=== PATIENT | male | born 1955 | race Caucasian/White ===

== ENCOUNTER 2020-07-03 10:38 | Inpatient (IN) | payer MEDICAID ==
[~2020-07-03] VITALS: Ht 198.1 cm; Wt 77.6 kg
[2020-07-03] MEDS ORDERED: Pantoprazole Inj IV ONE (11:00)
--- NOTE | 2020-07-03 11:04 | Emergency Room Report ---
History of Present Illness General Chief Complaint: Vomiting Source: Medical Record, EMS Present Illness HPI Patient is DNR. Patient currently resides at a shelter. Patient's primary care physician is Dr. Dexter. Patient apparently has a history of GI bleeds. Patient also was recently diagnosed with COVID and has made a full recovery. Patient presents emergency department today with episodes of coffee-ground emesis x2. Patient is a poor historian unable to provide a history. All the history was obtained from medical records and discussion with EMS. Symptoms noted to be moderate to severe. No other modifying factors. No other associated signs and symptoms. No other complaints were noted. Allergies: Coded Allergies: No Known Allergies (Unverified , 07/03/20) COVID-19 Screening Contact w/high risk pt: Yes Experienced COVID-19 symptoms?: No COVID-19 Testing performed SURGICAL CONSULTANT: Yes COVID-19 Screening: Negative COVID-19 COVID-19 Testing Source: Negative on last , Positive April 16 Patient History Reviewed Nursing Documentation: PMH: Agreed; PSxH: Agreed Nursing Documentation-PMH Past Medical History: No History, Except For Hx COPD: Yes - PNA, COVID + History Of Psychiatric Problem: Yes - anxiety, paranoid schizophrenia Review of Systems All Other Systems: negative except mentioned in HPI Physical Exam Vital Signs Date Time Temp Pulse Resp B/P (MAP) Pulse Ox O2 Delivery O2 Flow Rate FiO2 07/03/20 10:32 97.5 91 24 118/70 (86) 94 Room Air Sp02 EP Interpretation: reviewed, normal General Appearance: alert, thin, Chronically Ill Head: atraumatic Eyes: bilateral eye normal inspection ENT: normal ENT inspection, hearing grossly normal, normal voice Neck: normal inspection, full range of motion, supple, no bony tend Respiratory: normal inspection, lungs clear, normal breath sounds, no respiratory distress, no retraction, no wheezing Cardiovascular #1: regular rate, rhythm, no edema Gastrointestinal: normal inspection, normal bowel sounds, non tender, soft, no guarding, no hernia Genitourinary: no CVA tenderness Musculoskeletal: normal inspection, back normal, normal range of motion Neurologic: alert, responsive, speech normal, normal inspection Psychiatric: depressed affect, anxious Skin: no rash Medical Decision Making Diagnostic Impression: Primary Impression: Upper GI bleed Additional Impression: Vomiting ER Course Patient presents emergency department today with episodes of coffee-ground emesis. Differential considerations include upper GI bleeding, bowel obstruction, electrolyte abnormality, gastroenteritis just name a few. Given the severity of the patient's presentation I felt this is a highly complex patient. This patient required extensive workup. Patient laboratory work-up was not impressive. However given history patient's advanced age and appearance feel the patient require admission for further treatment and evaluation. Also obtain a CT scan. Case was discussed in detail with Dr. Bárbara Chavez who knows patient well from shelter. He recommends he be admitted for his service for further evaluation. Case was also discussed with Dr. Self from GI for further evaluation as needed. Patient will be placed on [facility] for further treatment. Labs Test 07/03/20 10:45 07/03/20 10:51 Urine Color Brown Urine Appearance Cloudy Urine pH 8 (4.5-8.0) Urine Specific [place] 1.010 (1.005-1.035) Urine Protein 3+ (NEGATIVE) Urine Glucose (UA) Negative (NEGATIVE) Urine Ketones Negative (NEGATIVE) Urine Blood 5+ (NEGATIVE) Urine Nitrite Positive (NEGATIVE) Urine Bilirubin Negative (NEGATIVE) Urine Urobilinogen 4 MG/DL (0.0-1.0) Urine Leukocyte Esterase 3+ (NEGATIVE) Urine RBC Tntc /HPF (0 - 0) Urine WBC 15-20 /HPF (0 - 0) Urine Squamous Epithelial Cells Occasional /LPF Urine Bacteria Many /HPF (NONE) White Blood Count 6.0 K/UL (4.8-10.8) Red Blood Count 4.95 M/UL (4.70-6.10) Hemoglobin 14.9 G/DL (14.2-18.0) Hematocrit 42.7 % (42.0-52.0) Mean Corpuscular Volume 86 FL (80-99) Mean Corpuscular Hemoglobin 30.1 PG (27.0-31.0) Mean Corpuscular Hemoglobin Concent 34.9 G/DL (32.0-36.0) Red Cell Distribution Width 12.7 % (11.6-14.8) Platelet Count 197 K/UL (150-450) Mean Platelet Volume 6.4 FL (6.5-10.1) Neutrophils (%) (Auto) 69.8 % (45.0-75.0) Lymphocytes (%) (Auto) 14.5 % (20.0-45.0) Monocytes (%) (Auto) 14.1 % (1.0-10.0) Eosinophils (%) (Auto) 0.0 % (0.0-3.0) Basophils (%) (Auto) 1.6 % (0.0-2.0) Prothrombin Time 12.2 SEC (9.30-11.50) Prothromb Time International Ratio 1.1 (0.9-1.1) Activated Partial Thromboplast Time 39 SEC (23-33) Sodium Level 137 MMOL/L (136-145) Potassium Level 4.3 MMOL/L (3.5-5.1) Chloride Level 103 MMOL/L (98-107) Carbon Dioxide Level 25 MMOL/L (21-32) Anion Gap 10 mmol/L (5-15) Blood Urea Nitrogen 44 mg/dL (7-18) Creatinine 0.7 MG/DL (0.55-1.30) Estimat Glomerular Filtration Rate > 60 mL/min (>60) Glucose Level 150 MG/DL (74-106) Calcium Level 8.4 MG/DL (8.5-10.1) Total Bilirubin 1.0 MG/DL (0.2-1.0) Aspartate Amino Transf (AST/SGOT) 10 U/L (15-37) Alanine Aminotransferase (ALT/SGPT) 17 U/L (12-78) Alkaline Phosphatase 65 U/L (46-116) Troponin I 0.000 ng/mL (0.000-0.056) Total Protein 6.7 G/DL (6.4-8.2) Albumin 2.6 G/DL (3.4-5.0) Globulin 4.1 g/dL Albumin/Globulin Ratio 0.6 (1.0-2.7) Lipase 45 U/L (73-393) EKG Diagnostic Results Rate: normal Rhythm: NSR ST Segments: no acute changes Rhythm Strip Diag. Results EP Interpretation: yes Rate: 88 Rhythm: NSR, no PVC's, no ectopy Last Vital Signs Date Time Temp Pulse Resp B/P (MAP) Pulse Ox O2 Delivery O2 Flow Rate FiO2 07/03/20 10:32 97.5 91 24 118/70 (86) 94 Room Air Status: improved Disposition: ADMITTED INPATIENT Condition: Serious Christopher Taylor MD Jul 03, 2020 11:04
[2020-07-03] MEDS ORDERED: BENEPROTEIN1 EACH PO (11:09)
[2020-07-03] MEDS ORDERED: COLACE100 MG/10 ORAL (11:09)
[2020-07-03] MEDS ORDERED: MILK OF MA2400 MG/10 ORAL (11:09)
[2020-07-03] MEDS ORDERED: VITAMIN D310 MC2 PO (11:09)
[2020-07-03] MEDS ORDERED: CALCIUM 600 +1 EAC6 PO (11:09)
[2020-07-03] MEDS ORDERED: FERROUS SULFAT325 MG ORAL (11:09)
[2020-07-03] MEDS ORDERED: BENZTROPINE MESY1 MG ORAL (11:09)
[2020-07-03] MEDS ORDERED: IMODIUM A-1 MG/7.5 M PO (11:09)
[2020-07-03] MEDS ORDERED: ZYPREXA10 MG ORAL (11:09)
[2020-07-03] MEDS ORDERED: TYLENOL EXTRA500 MG ORAL (11:09)
[2020-07-03] MEDS ORDERED: ALBUTEROL2.5 MG/3 M INH (11:09)
[2020-07-03] MEDS ORDERED: ADVAIR 250-501 EACH INH (11:09)
[2020-07-03] MEDS ORDERED: TUSSIN CHE100 MG/5 M PO (11:09)
[2020-07-03] MEDS ORDERED: FOSAMAX70 MG ORAL (11:09)
[2020-07-03] MEDS ORDERED: ALBUTEROL SULFAT2 MG PO (11:09)
[2020-07-03] MEDS ORDERED: EPOGEN2000 UNIT/ SUBQ (11:09)
[2020-07-03] MEDS ORDERED: LACTASE3000 UNIT PO (11:09)
[2020-07-03 11:29] LABS: BASOPHILS % (AUTO) 1.6 % (0.0-2.0); HEMATOCRIT 42.7 % (42.0-52.0); HEMOGLOBIN 14.9 G/DL (14.2-18.0); LYMPHOCYTES % (AUTO) 14.5 % (20.0-45.0); MEAN CORPUSCULAR VOLUME 86 FL (80-99); MONOCYTES % (AUTO) 14.1 % (1.0-10.0); NEUTROPHILS % (AUTO) 69.8 % (45.0-75.0); PLATELET COUNT 197 K/UL (150-450); RED BLOOD COUNT 4.95 M/UL (4.70-6.10); RED CELL DISTRIBUTION WIDTH 12.7 % (11.6-14.8)
[2020-07-03 11:37] VITALS: BP 125/71
[2020-07-03 11:43] LABS: INR 1.1 (0.9-1.1)
[2020-07-03 11:44] LABS: ANION GAP 10 mmol/L (5-15); BLOOD UREA NITROGEN 44 mg/dL (7-18); CALCIUM 8.4 MG/DL (8.5-10.1); CARBON DIOXIDE 25 MMOL/L (21-32); CHLORIDE 103 MMOL/L (98-107); CREATININE 0.7 MG/DL (0.55-1.30); POTASSIUM 4.3 MMOL/L (3.5-5.1); SODIUM 137 MMOL/L (136-145)
[2020-07-03 11:53] LABS: ALANINE AMINOTRANSFERASE 17 U/L (12-78); ALBUMIN 2.6 G/DL (3.4-5.0); ALBUMIN/GLOBULIN RATIO 0.6 (1.0-2.7); ALKALINE PHOSPHATASE 65 U/L (46-116); ASPARTATE AMINO TRANSFERASE 10 U/L (15-37)
[2020-07-03 12:41] LABS: APPEARANCE,URINE CLOUDY; BILIRUBIN, URINE NEGATIVE (NEGATIVE); COLOR,URINE BROWN; GLUCOSE, URINE (UA) NEGATIVE (NEGATIVE); KETONES,URINE NEGATIVE (NEGATIVE); LEUKOCYTE ESTERASE ,URINE 3+ (NEGATIVE); NITRITE,URINE POSITIVE (NEGATIVE); PH,URINE 8 (4.5-8.0); PROTEIN,URINE 3+ (NEGATIVE); UROBILINOGEN,URINE 4 MG/DL (0.0-1.0)
[2020-07-03 13:32] VITALS: BP 128/73
--- NOTE | 2020-07-03 14:15 | Diagnostic Imaging Report ---
Indication: Abdominal pain Technique: Spiral acquisitions obtained through the abdomen and pelvis. No oral contrast utilized, per emergency room physician request No IV contrast utilized, per referring physician request.. Multiplanar reconstructions were generated. Total dose length product 231 mGycm. CTDIvol(s) 3 mGy. Dose reduction achieved using automated exposure control Comparison: None Findings: Lack of enteric contrast administration limits assessment of the GI tract. The rectum is distended by gas and stool, measuring up to 9.5 cm transverse diameter. There is mild rectal wall thickening and mild infiltration of the perirectal fat. The colon is diffusely mildly distended proximal to this, gas and stool-filled. This is seen over its entire length. Small bowel loops are gas and fluid-filled, mildly distended. There is nondistended distal small bowel, although a transition point is not clearly identified. The appendix is normal. No evidence of diverticulosis or diverticulitis. The distal esophagus and stomach and duodenum are unremarkable. No free or loculated intraperitoneal gas or fluid is evident. Lack of IV contrast limits assessment of the solid organs. The liver, gallbladder, bile ducts, pancreas, spleen, adrenals are unremarkable. The kidneys demonstrate bilateral calyceal and pelvic calculi. No ureteral calculi, hydronephrosis, or hydroureter is demonstrated. There is wall thickening of the posterior bladder wall. No pelvic mass or adenopathy. Included lung bases demonstrate bilateral lower lobe infiltrates. The bones demonstrate compression fracture deformities of the L1, T12, T11, T9, and T7 vertebral bodies. Impression: Distended rectum with feces, as described, raises concern for rectal fecal impaction. Rectal wall thickening raises concern for stercoral proctitis. There is also generalized gaseous distention of the colon with gas and stool, which is probably functional in nature Mildly distended gas and fluid-filled proximal small bowel loops with distal nondilated small bowel loops. Most likely due to ileus or disordered motility, but the possibility of mild mid small bowel obstruction an also be considered. Bladder wall thickening. Could indicate cystitis, but given the focal location in the posterior bladder, the possibility of neoplasm should also be considered Multiple vertebral body compression fractures. Age-indeterminate. Consider MRI for further evaluation if this is clinically relevant Bilateral lower lobe pulmonary parenchymal infiltrates, likely pneumonia. There may also be a component of atelectasis The CT scanner at [facility] is accredited by the [employer] and the scans are performed using protocols designed to limit radiation exposure to as low as reasonably achievable to attain images of sufficient resolution adequate for diagnostic evaluation.
[2020-07-03 14:39] VITALS: BP 115/50
[2020-07-03 16:00] VITALS: BP 121/55
[2020-07-03] MEDS ORDERED: guaiFENesin /DM 10ml syrup ORAL PRN (16:15)
--- NOTE | 2020-07-03 16:17 | Diagnostic Imaging Report ---
Indication: Cough Technique: One view of the chest Comparison: none Findings: Right infrahilar and left retrocardiac opacities are demonstrated. The pleural spaces are clear. The upper lungs are clear. Impression: Acuity indeterminate right infrahilar and left retrocardiac opacities, may represent infiltrates if acute. Correlate with clinical findings
[2020-07-03] MEDS ORDERED: Wixela 250/50 Inhaler - 60 dose INH SCH (17:00)
[2020-07-03] MEDS: Calcium Carbonate 500mg w/Vit D 200iu tab ORAL SCH (17:48)
[2020-07-03] MEDS: Benztropine 1mg tab ORAL SCH (17:48)
--- NOTE | 2020-07-03 18:30 | History and Physical Report ---
DATE OF ADMISSION: 07/03/2020 REASON FOR ADMISSION: Anemia, possible GI bleed. HISTORY: A 65-year-old male presents with possible GI bleeding. The patient is not anemic on arrival. The patient had coffee-ground emesis. PAST MEDICAL HISTORY: Notable for dementia, psychosis, history of COVID, history of paranoia, and history of anxiety. MEDICATIONS: Reviewed. ALLERGIES: Reviewed. SOCIAL HISTORY: half-way patient. DNR. PHYSICAL EXAMINATION: GENERAL: Well-developed male. VITAL SIGNS: Reviewed. Overall stable. LUNGS: Clear. CARDIAC: S1, S2. Regular rate and rhythm. ABDOMEN: Soft and nontender. EXTREMITIES: No edema. LABORATORY DATA: Reviewed. Essentially negative. BUN 44. CBC normal. Glucose 150. IMPRESSION: 1. Possible GI bleed. 2. Coffee-grounds emesis. 3. No evidence of acute renal failure. 4. Evidence of mild dehydration. 5. Schizophrenia. RECOMMENDATIONS: 1. Resume residential medication. 2. Pepcid IV. 3. IV hydration. 4. Follow-up laboratories. 5. GI evaluation and discharge once stable. Tereso Dexter M.D. DR: KENN JOB#: [id number] CC:
[2020-07-03 20:00] VITALS: BP 111/66
[2020-07-03] MEDS: Albuterol Sulfate Syrup 2mg/5ml ORAL SCH (21:36)
[2020-07-04] VITALS (11 sets, daily range): BP systolic 91–130; BP diastolic 45–77
[2020-07-04] MEDS: Albuterol Sulfate Syrup 2mg/5ml ORAL SCH (06:14)
[2020-07-04] MEDS ORDERED: fentaNYL 100 mcg/2 mL IV SCH (06:50)
[2020-07-04] MEDS ORDERED: Midazolam 2mg/2ml Inj IVP SCH (06:50)
[2020-07-04] MEDS ORDERED: fentaNYL 100 mcg/2 mL IV PRN (06:52)
[2020-07-04] MEDS ORDERED: Midazolam 2mg/2ml Inj IVP PRN (06:52)
[2020-07-04] MEDS ORDERED: Midazolam 2mg/2ml Inj ONE (06:56)
[2020-07-04] MEDS ORDERED: NS 500ML IVPB ONE (07:00)
--- NOTE | 2020-07-04 07:07 | General Progress Note ---
Subjective Allergies: Coded Allergies: No Known Allergies (Unverified , 07/03/20) Objective Last 24 Hour Vital Signs Date Time Temp Pulse Resp B/P (MAP) Pulse Ox O2 Delivery O2 Flow Rate FiO2 07/04/20 00:00 98.6 81 18 118/69 (85) 95 07/03/20 21:00 Room Air 07/03/20 20:00 98.6 81 18 111/66 (81) 95 07/03/20 16:00 97.9 81 18 121/55 (77) 94 07/03/20 15:07 Room Air 07/03/20 14:39 97.5 84 18 115/50 (71) 94 07/03/20 13:45 97.5 83 19 130/75 99 Room Air 07/03/20 13:32 97.5 81 20 128/73 96 Room Air 07/03/20 11:37 89 22 Room Air 97 07/03/20 11:37 97.5 89 22 125/71 97 Room Air 07/03/20 10:32 97.5 91 24 118/70 (86) 94 Room Air Intake and Output 07/03/20 07/04/20 19:00 07:00 Intake Total 500 ml 600 ml Output Total 2 ml Balance 498 ml 600 ml Intake Oral 400 ml IV Total 100 ml 600 ml Output Stool Total 2 ml # Voids 2 3 # Bowel Movements 3 3 Laboratory Tests 07/03/20 10:45: Urine Color Brown, Urine Appearance Cloudy, Urine pH 8, Urine Specific [place] 1.010, Urine Protein 3+H, Urine Glucose (UA) Negative, Urine Ketones Negative, Urine Blood 5+H, Urine Nitrite PositiveH, Urine Bilirubin Negative, Urine Urobilinogen 4H, Urine Leukocyte Esterase 3+H, Urine RBC TntcH, Urine WBC 15-20H , Urine Squamous Epithelial Cells Occasional, Urine Bacteria ManyH 07/03/20 10:51: White Blood Count 6.0, Red Blood Count 4.95, Hemoglobin 14.9, Hematocrit 42.7, Mean Corpuscular Volume 86, Mean Corpuscular Hemoglobin 30.1, Mean Corpuscular Hemoglobin Concent 34.9, Red Cell Distribution Width 12.7, Platelet Count 197, Mean Platelet Volume 6.4L, Neutrophils (%) (Auto) 69.8, Lymphocytes (%) (Auto) 14.5L, Monocytes (%) (Auto) 14.1H, Eosinophils (%) (Auto) 0.0, Basophils (%) (Auto) 1.6, Prothrombin Time 12.2H, Prothromb Time International Ratio 1.1, Activated Partial Thromboplast Time 39H, Sodium Level 137, Potassium Level 4.3, Chloride Level 103, Carbon Dioxide Level 25, Anion Gap 10, Blood Urea Nitrogen 44H, Creatinine 0.7, Estimat Glomerular Filtration Rate > 60, Glucose Level 150H , Calcium Level 8.4L, Total Bilirubin 1.0, Aspartate Amino Transf (AST/SGOT) 10L , Alanine Aminotransferase (ALT/SGPT) 17, Alkaline Phosphatase 65, Troponin I 0.000, Total Protein 6.7, Albumin 2.6L, Globulin 4.1, Albumin/Globulin Ratio 0.6L, Lipase 45L Height (Feet): 6 Weight (Pounds): 171 Assessment/Plan Assessment/Plan: GI Consult Full note to follow Will proceed with EGD today Thank you MD Clair Smith Payman MD Jul 04, 2020 07:07
--- NOTE | 2020-07-04 07:13 | Pre-Procedure Note/Attestation ---
Pre-Procedure Note/Attestation Complete Prior to Procedure Planned Procedure: not applicable Procedure Narrative: egd Indications for Procedure Pre-Operative Diagnosis: gib Attestation I attest that I discussed the nature of the procedure; its benefits; risks and complications; and alternatives (and the risks and benefits of such alternatives), prior to the procedure, with the patient (or the patient's legal accounts payable representative). I attest that, if there was a reasonable possibility of needing a blood transfusion, the patient (or the patient's legal accounts payable representative) was given the [facility] standardized written summary, pursuant to the [employer] Blood Safety Act ([place] Health and Safety Code # 1645, as amended). I attest that I re-evaluated the patient just prior to the surgery and that there has been no change in the patient's H&P, except as documented below: Marquez Self MD Jul 04, 2020 07:13
--- NOTE | 2020-07-04 07:32 | General Progress Note ---
Subjective Allergies: Coded Allergies: No Known Allergies (Unverified , 07/03/20) Objective Last 24 Hour Vital Signs Date Time Temp Pulse Resp B/P (MAP) Pulse Ox O2 Delivery O2 Flow Rate FiO2 07/04/20 00:00 98.6 81 18 118/69 (85) 95 07/03/20 21:00 Room Air 07/03/20 20:00 98.6 81 18 111/66 (81) 95 07/03/20 16:00 97.9 81 18 121/55 (77) 94 07/03/20 15:07 Room Air 07/03/20 14:39 97.5 84 18 115/50 (71) 94 07/03/20 13:45 97.5 83 19 130/75 99 Room Air 07/03/20 13:32 97.5 81 20 128/73 96 Room Air 07/03/20 11:37 89 22 Room Air 97 07/03/20 11:37 97.5 89 22 125/71 97 Room Air 07/03/20 10:32 97.5 91 24 118/70 (86) 94 Room Air Intake and Output 07/03/20 07/04/20 19:00 07:00 Intake Total 500 ml 600 ml Output Total 2 ml Balance 498 ml 600 ml Intake Oral 400 ml IV Total 100 ml 600 ml Output Stool Total 2 ml # Voids 2 3 # Bowel Movements 3 3 Laboratory Tests 07/03/20 10:45: Urine Color Brown, Urine Appearance Cloudy, Urine pH 8, Urine Specific [place] 1.010, Urine Protein 3+H, Urine Glucose (UA) Negative, Urine Ketones Negative, Urine Blood 5+H, Urine Nitrite PositiveH, Urine Bilirubin Negative, Urine Urobilinogen 4H, Urine Leukocyte Esterase 3+H, Urine RBC TntcH, Urine WBC 15-20H , Urine Squamous Epithelial Cells Occasional, Urine Bacteria ManyH 07/03/20 10:51: White Blood Count 6.0, Red Blood Count 4.95, Hemoglobin 14.9, Hematocrit 42.7, Mean Corpuscular Volume 86, Mean Corpuscular Hemoglobin 30.1, Mean Corpuscular Hemoglobin Concent 34.9, Red Cell Distribution Width 12.7, Platelet Count 197, Mean Platelet Volume 6.4L, Neutrophils (%) (Auto) 69.8, Lymphocytes (%) (Auto) 14.5L, Monocytes (%) (Auto) 14.1H, Eosinophils (%) (Auto) 0.0, Basophils (%) (Auto) 1.6, Prothrombin Time 12.2H, Prothromb Time International Ratio 1.1, Activated Partial Thromboplast Time 39H, Sodium Level 137, Potassium Level 4.3, Chloride Level 103, Carbon Dioxide Level 25, Anion Gap 10, Blood Urea Nitrogen 44H, Creatinine 0.7, Estimat Glomerular Filtration Rate > 60, Glucose Level 150H , Calcium Level 8.4L, Total Bilirubin 1.0, Aspartate Amino Transf (AST/SGOT) 10L , Alanine Aminotransferase (ALT/SGPT) 17, Alkaline Phosphatase 65, Troponin I 0.000, Total Protein 6.7, Albumin 2.6L, Globulin 4.1, Albumin/Globulin Ratio 0.6L, Lipase 45L Height (Feet): 6 Height (Inches): 6.00 Weight (Pounds): 171 Assessment/Plan Assessment/Plan: GI Endoscopy Findings: 4-5 cm Hiatal hernia, erosive gastritis, no active bleeding Rec: 1) PPI prison 2) OK for d/c Marquez Conte MD Jul 04, 2020 07:32
--- NOTE | 2020-07-04 07:53 | Brief Operative Note ---
Immediate Post Operative Note Operative Note Pre-op Diagnosis: gib Specimen: yes Complications: none Fluids: See RN note Implant(s) used?: No Marquez Self MD Jul 04, 2020 07:53
--- NOTE | 2020-07-04 07:53 | Endoscopy Procedure Note ---
Endoscopy Procedure Note General Indication for Procedure: gib Procedures Performed: EGD Operative Findings/Diagnosis: HH Gastritis Specimen: yes Pt Tolerated Procedure Well: Yes Estimated Blood Loss: none Anesthesia Anesthesiologist: None Anesthesia: other Inserted Devices Implant(s) used?: No GI Core Measures 50 yrs or older w/o bx or poly: Not Applicable 10yrs. F/U recommended: Not Applicable Marquez Self MD Jul 04, 2020 07:53
--- NOTE | 2020-07-04 08:17 | General Progress Note ---
Subjective Allergies: Coded Allergies: No Known Allergies (Unverified , 07/03/20) Subjective s/p EGD Objective Last 24 Hour Vital Signs Date Time Temp Pulse Resp B/P (MAP) Pulse Ox O2 Delivery O2 Flow Rate FiO2 07/04/20 07:45 98.0 85 20 104/52 100 Nasal Cannula 3 07/04/20 07:40 76 16 94/46 100 Nasal Cannula 3 07/04/20 07:35 98.5 77 14 91/49 100 Nasal Cannula 3 07/04/20 04:00 98.9 78 20 103/60 (74) 95 07/04/20 00:00 98.6 81 18 118/69 (85) 95 07/03/20 21:00 Room Air 07/03/20 20:00 98.6 81 18 111/66 (81) 95 07/03/20 16:00 97.9 81 18 121/55 (77) 94 07/03/20 15:07 Room Air 07/03/20 14:39 97.5 84 18 115/50 (71) 94 07/03/20 13:45 97.5 83 19 130/75 99 Room Air 07/03/20 13:32 97.5 81 20 128/73 96 Room Air 07/03/20 11:37 89 22 Room Air 97 07/03/20 11:37 97.5 89 22 125/71 97 Room Air 07/03/20 10:32 97.5 91 24 118/70 (86) 94 Room Air Intake and Output 07/03/20 07/04/20 19:00 07:00 Intake Total 500 ml 600 ml Output Total 2 ml Balance 498 ml 600 ml Intake Oral 400 ml IV Total 100 ml 600 ml Output Stool Total 2 ml # Voids 2 3 # Bowel Movements 3 3 Laboratory Tests 07/03/20 10:45: Urine Color Brown, Urine Appearance Cloudy, Urine pH 8, Urine Specific [place] 1.010, Urine Protein 3+H, Urine Glucose (UA) Negative, Urine Ketones Negative, Urine Blood 5+H, Urine Nitrite PositiveH, Urine Bilirubin Negative, Urine Urobilinogen 4H, Urine Leukocyte Esterase 3+H, Urine RBC TntcH, Urine WBC 15-20H , Urine Squamous Epithelial Cells Occasional, Urine Bacteria ManyH 07/03/20 10:51: White Blood Count 6.0, Red Blood Count 4.95, Hemoglobin 14.9, Hematocrit 42.7, Mean Corpuscular Volume 86, Mean Corpuscular Hemoglobin 30.1, Mean Corpuscular Hemoglobin Concent 34.9, Red Cell Distribution Width 12.7, Platelet Count 197, Mean Platelet Volume 6.4L, Neutrophils (%) (Auto) 69.8, Lymphocytes (%) (Auto) 14.5L, Monocytes (%) (Auto) 14.1H, Eosinophils (%) (Auto) 0.0, Basophils (%) (Auto) 1.6, Prothrombin Time 12.2H, Prothromb Time International Ratio 1.1, Activated Partial Thromboplast Time 39H, Sodium Level 137, Potassium Level 4.3, Chloride Level 103, Carbon Dioxide Level 25, Anion Gap 10, Blood Urea Nitrogen 44H, Creatinine 0.7, Estimat Glomerular Filtration Rate > 60, Glucose Level 150H , Calcium Level 8.4L, Total Bilirubin 1.0, Aspartate Amino Transf (AST/SGOT) 10L , Alanine Aminotransferase (ALT/SGPT) 17, Alkaline Phosphatase 65, Troponin I 0.000, Total Protein 6.7, Albumin 2.6L, Globulin 4.1, Albumin/Globulin Ratio 0.6L, Lipase 45L Height (Feet): 6 Height (Inches): 6.00 Weight (Pounds): 171 Objective WDWN NAD clear breath sounds bilaterally without rhonchi or wheeze [id number] without MRG NABS nontender no HSM no CCE nonfocal Assessment/Plan Assessment/Plan: IMPRESSION: 1. erosive gastritis 2. Coffee-grounds emesis. 3. No evidence of acute renal failure. 4. Evidence of mild dehydration. 5. Schizophrenia. PLAN dc to snf protonix on dc resume snf meds stable for dc impression, plan, and exam edited and reviewed in detail care discussed with Tereso Langford MD Jul 04, 2020 08:16
[2020-07-04] MEDS ORDERED: PROTONIX40 M2 GT (08:19)
[2020-07-04] MEDS ORDERED: BACTRIM 400-801 EACH ORAL (08:19)
--- NOTE | 2020-07-04 08:25 | Moderate Sedation - Procedural ---
Moderate Sedation HPI Home Medication Reported Medications Olanzapine* (ZYPREXA*) 10 Mg Tablet, 15 MG ORAL HS for SCHIZOPHRENIA, #30 TAB 0 Refills 07/03/20 Cholecalciferol (Vitamin D3) (Vitamin D3) 10 Mcg Tab.chew, 03368 UNITS PO DAILY for VITAMIN, TAB 07/03/20 Acetaminophen* (TYLENOL EXTRA STRENGTH*) 500 Mg Tablet, 650 MG ORAL Q6H PRN for For Pain, TAB 0 Refills 07/03/20 Guaifenesin (TUSSIN CHEST CONGESTION) 100 Mg/5 Ml Liquid, 10 MG PO Q6HR PRN for For Cough, ML 07/03/20 Magnesium Hydroxide* (MILK OF MAGNESIA*) 2,400 Mg/10 Ml Oral.susp, 30 ML ORAL THREE TIMES A WEEK for constipation, ML 07/03/20 Lactase (LACTASE) 3,000 Unit Tablet, 3000 UNIT PO DAILY for lactose intolorance, TAB 07/03/20 Loperamide Hcl (IMODIUM A-D) 1 Mg/7.5 Ml Liquid, 2 MG PO Q6HR PRN for Diarrhea, ML 07/03/20 Ferrous Sulfate* (FERROUS SULFATE*) 325 Mg Tablet, 325 MG ORAL THREE TIMES A DAY for SUPPLEMENT, #90 TAB 0 Refills 07/03/20 Epoetin Michael (Epogen) 2,000 Unit/1 Ml Vial, 1000 UNIT SUBQ 3XW for anemia, VIAL 07/03/20 Docusate Sodium (Docusate Sodium) 50 Mg/5 Ml Liquid, 50 MG ORAL BID for constipation, #120 EA 07/03/20 Calcium Carbonate/Vitamin D3 (CALCIUM 600 + VIT D 400 TABLET) 1 Each Tablet, 1 EACH PO BID for vitamin, TAB 07/03/20 Benztropine Mesylate* (BENZTROPINE MESYLATE*) 1 Mg Tablet, 2 MG ORAL BID for extrapyramidal s/s for 30 Days, #60 TAB 07/03/20 Whey Protein Isolate (Beneprotein) 1 Each Powd.pack, 1 EACH PO for protein, PACK 07/03/20 Alendronate Sodium* (FOSAMAX*) 70 Mg Tablet, 70 MG ORAL ONCE A WEEK for osteoporosis , TAB 07/03/20 Albuterol Sulfate* (ALBUTEROL SULFATE*) 2 Mg Tablet, 2 MG PO TID for copd, TAB 0 Refills 07/03/20 Albuterol Sulfate* (ALBUTEROL SULFATE HHN*) 2.5 Mg/3 Ml Vial.neb, 3 ML INH Q4H PRN for For Cough, EA 07/03/20 Fluticasone/Salmeterol (Advair 250-50 Diskus) 1 Each Blst.w.dev, 1 PUFF INH EVERY 12 HOURS for COPD, EA 07/03/20 Patient History Allergies: Coded Allergies: No Known Allergies (Unverified , 07/03/20) Pre-Procedural Mod Sedation Date: Jul 04, 2020 Pre-Assessment Time: 07:10 Vital Signs see vs sheet Pre-Sedation Assessment: Eval. Immed. Prior to Sed Airway Assessment (Malampati): I Heart: normal Lungs: normal Abdomen: normal Extremities: normal Pre-op Diagnosis: UGIB Evaluation Hx of untoward rxns to mod sed: No Procedures/Plans: EGD Plan for Moderate Sedation: Midazolam, Fentanyl ASA Score: II Informed Consent The nature of the procedure/sedation; its benefits; risks and complications; and alternatives (and the risks and benefits of such alternatives) were discussed with the patient (or their legal digital media representative), prior to the procedure. All questions were answered to the patient's (or their legal digital media representative's) satisfaction and the patient (or their legal digital media representative) gave informed consent to the procedure. I attest that I re-evaluated the patient just prior to the surgery and that there has been no change in the patient's H&P, except as documented below: Post Procedure Assessment Post Procedure TIme: 07:30 Communication: No Apparent Limitation Mental Status: Awake Respiration: Unlabored Skin Condition: WNL Adomen: WNL Nausea: NO Vomiting: NO Marquez Self MD Jul 04, 2020 08:25
[2020-07-04] MEDS: Calcium Carbonate 500mg w/Vit D 200iu tab ORAL SCH (08:38)
[2020-07-04] MEDS: Benztropine 1mg tab ORAL SCH (08:38)
[2020-07-04] MEDS ORDERED: cefTRIAXone 1 GM in D5W 55 ML IVPB SCH (09:00)
--- NOTE | 2020-07-04 15:45 | Procedure Note ---
DATE OF PROCEDURE: 07/04/2020 GASTROENTEROLOGY PROCEDURE REPORT PROCEDURE: Upper gastrointestinal endoscopy with biopsy. SURGEON: Marquez Self MD. ANESTHESIA: Fentanyl and Versed was given in divided doses for a total of 1 mg of Versed and 50 mcg of fentanyl with good results. PRE-ENDOSCOPIC DIAGNOSIS: This is a 65-year-old white man with advanced cognitive dysfunction, who came into the hospital with some coffee-ground emesis. Hematocrit was intact. Examination only showed a soft, nontender stomach. This endoscopy was done to rule out any significant lesion to assist with the planning and discharge. POST-ENDOSCOPIC DIAGNOSES: 1. A 4 to 5 cm hiatal hernia. 2. Mild erosive gastritis. 3. No ulcers or active bleeding. 4. Status post random biopsies of the antrum. DESCRIPTION OF PROCEDURE: The procedure, its risks, indications, alternatives, and possible complications were explained to the OA and an informed consent was obtained. Time-out was called and the patient was given fentanyl and Versed in divided doses to achieve conscious sedation. Continuous pulse oximetry, blood pressure monitoring and rhythm monitoring were provided. The diagnostic upper endoscope was introduced through oropharynx and advanced to the duodenum. The endoscope was then gradually withdrawn and mucosa examined carefully. Examination of the upper gastrointestinal mucosa revealed a 4 to 5 cm hiatal hernia as well as some mild erosive gastritis with small bits of blood in the stomach. There was, however, no david bleeding and no ulcerations and no mass lesions. Random biopsies of the antrum was sent for pathology for Helicobacter pylori evaluation. The endoscope was removed and the patient was sent to recovery in good condition. COMPLICATIONS: None. RECOMMENDATIONS: 1. Resume oral diet. 2. Check and treat Helicobacter pylori if positive. 3. Long-term proton pump inhibitor therapy, especially given a large hiatal hernia. Marquez Self M.D. DR: MILLER JOB#: [id number] CC: SALOMÓN
[2020-07-04] MEDS ORDERED: Epoetin Alfa-EPBX (NON ESRD) 2000 units/ml vial SUBQ SCH (21:00)
[2020-07-04] MEDS ORDERED: Epoetin Alfa-EPBX (NON ESRD)10,000 unit/ml vial SUBQ SCH (21:00)
--- NOTE | 2020-07-06 10:51 | Discharge Summary ---
Discharge Summary Discharge Summary _ DATE OF ADMISSION: 07/03/2020 DATE OF DISCHARGE: 07/04/2020 DISCHARGED BY: Dr. Jose Dexter CONSULTANTS: Dr. Marquez Self BRIEF HOSPITAL COURSE: Patient is a 65-year-old male, who resides at assisted, was brought in by EMS due to GI bleed. Patient was previously diagnosed with COVID and has made a full recovery. He had episodes of coffee-ground emesis x2. Upon evaluation at ED, vital signs were stable. He was afebrile and was saturating well on room air. Blood work did not show any leukocytosis. Hemoglobin 14.9. Hematocrit 43. Platelet count 197. Electrolytes were normal. EKG did not show any acute changes. Urinalysis showed 3+ leukocyte esterase, too numerous to count urine RBC, 15-[address] of the abdomen and pelvis without contrast showed distended rectum with feces. Rectal wall thickening. Gaseous distention of the colon with gas and stool. Mildly distended gas and fluid level proximal small bowel loops with distal nondilated small bowel loops. Bladder wall thickening. Multiple vertebral body compression fracture, age indeterminate. Bilateral lower lobe pulmonary infiltrate, likely pneumonia. Patient was then admitted for evaluation of GI bleed. Patient was admitted to medical floor. [facility] medications were resumed. He was given IV hydration. He was given IV Pepcid. He was started empirically on ceftriaxone. GI was consulted. Patient underwent upper endoscopy. Findings showed hiatal hernia and gastritis. There was no evidence of active bleeding. Urine culture showed growth of Proteus mirabilis. Patient was cleared for discharge back to assisted. To start Protonix and Bactrim treatment for 7 days. FINAL DIAGNOSES: Erosive gastritis Coffee-ground emesis Mild dehydration Schizophrenia DISPOSITION: DC to SNF. DISCHARGE MEDICATIONS: Refer to Discharge Medication List. I have been assigned to complete a discharge summary on this account, I was not involved with the patient's management.--OSMAR Wood Jacqueline Robles NP Jul 06, 2020 10:51
== END 2020-07-04 16:28 | DRG 241 ==
LOC: EDBD 10:38 → EMR 11:00 → EDBEDREQ 13:11 → 4E 13:28
PROC: 0DB78ZX Excision of Stomach, Pylorus, Via Natural or Artificial Opening Endoscopic, Diagnostic (ICD-10-PCS; principal; 2020-07-04 07:15)
DX: K29.61 Other gastritis with bleeding (principal); E86.0 Dehydration; F20.9 Schizophrenia, unspecified; K92.0 Hematemesis; K44.9 Diaphragmatic hernia without obstruction or gangrene; N39.0 Urinary tract infection, site not specified; Z86.19 Personal history of other infectious and parasitic diseases
CPT/HCPCS: 36415; 71045; 74176; 80053; 81003; 83690; 84484; 85025; 85610; 85730; 86850; 86900; 86901; 87081; 87086; 87181; 93005; 96374; 96375; 99285; J2250; J2405; U0002

== ENCOUNTER 2020-12-19 12:57 | Emergency (ER) | payer MEDICAID ==
[~2020-12-19] VITALS: Ht 193 cm; Wt 81.6 kg
[~2020-12-19 12:57] MED LIST: ADVAIR 250-501 EACH INH; ALBUTEROL SULFAT2 MG PO; ALBUTEROL2.5 MG/3 M INH; BACTRIM 400-801 EACH ORAL; BENEPROTEIN1 EACH PO; BENZTROPINE MESY1 MG ORAL; CALCIUM 600 +1 EAC6 PO; COLACE100 MG/10 ORAL; EPOGEN2000 UNIT/ SUBQ; FERROUS SULFAT325 MG ORAL; FOSAMAX70 MG ORAL; IMODIUM A-1 MG/7.5 M PO; LACTASE3000 UNIT PO; MILK OF MA2400 MG/10 ORAL; PROTONIX40 M2 GT; TUSSIN CHE100 MG/5 M PO; TYLENOL EXTRA500 MG ORAL; VITAMIN D310 MC2 PO; ZYPREXA10 MG ORAL
--- NOTE | 2020-12-19 13:20 | NUR ---
pt arrives to ER via EMS with complaints of tarry black stools per nursing facility.
[2020-12-19 13:21] VITALS: BP 107/48
[2020-12-19 13:30] LABS: BASOPHILS % (AUTO) 0.6 % (0.0-2.0); EOSINOPHILS % (AUTO) 0.1 % (0.0-3.0); HEMATOCRIT 37.8 % (42.0-52.0); HEMOGLOBIN 12.7 G/DL (14.2-18.0); LYMPHOCYTES % (AUTO) 19.9 % (20.0-45.0); MEAN CORPUSCULAR VOLUME 88 FL (80-99); MONOCYTES % (AUTO) 4.2 % (1.0-10.0); NEUTROPHILS % (AUTO) 75.1 % (45.0-75.0); PLATELET COUNT 177 K/UL (150-450); RED BLOOD COUNT 4.31 M/UL (4.70-6.10); RED CELL DISTRIBUTION WIDTH 13.6 % (11.6-14.8); WHITE BLOOD COUNT 6.5 K/UL (4.8-10.8)
[2020-12-19 13:41] LABS: ANION GAP -1 mmol/L (5-15); BLOOD UREA NITROGEN 25 mg/dL (7-18); CALCIUM 9.2 MG/DL (8.5-10.1); CARBON DIOXIDE 30 MMOL/L (21-32); CHLORIDE 102 MMOL/L (98-107); CREATININE 0.6 MG/DL (0.55-1.30); POTASSIUM 3.4 MMOL/L (3.5-5.1); SODIUM 131 MMOL/L (136-145)
[2020-12-19 13:52] LABS: INR 1.2 (0.9-1.1)
[2020-12-19 13:54] LABS: ALANINE AMINOTRANSFERASE 58 U/L (12-78); ALBUMIN 3.1 G/DL (3.4-5.0); ALBUMIN/GLOBULIN RATIO 0.8 (1.0-2.7); ALKALINE PHOSPHATASE 102 U/L (46-116); ASPARTATE AMINO TRANSFERASE 25 U/L (15-37); BILIRUBIN,TOTAL 0.6 MG/DL (0.2-1.0); CKMB 1.2 NG/ML (0.0-3.6); CREATINE KINASE 27 U/L (26-308)
--- NOTE | 2020-12-19 14:07 | NUR ---
pt NAD at this time. pt making incomprehensive speech which is his baseline. pt has history of COPD, muscle weakness, pneumonia, kyphosis, and hyperlipidemia. pt is DNR. pt is currently awake and alert.
--- NOTE | 2020-12-19 14:12 | Diagnostic Imaging Report ---
Indication: Chest pain Technique: One view of the chest Comparison: 07/03/2020 Findings: Atelectatic changes are seen at both lung bases. The heart size is normal. The pleural spaces are clear. Previously demonstrated basilar opacities are less apparent currently Impression: No definite acute process. Bilateral basilar atelectasis
--- NOTE | 2020-12-19 14:17 | Emergency Room Report ---
History of Present Illness General Chief Complaint: Gastrointestinal Bleed Source: EMS Present Illness HPI Patient presents from nursing facility with reports of dark stool This was seen today by nursing facility patient himself has underlying Psychiatric and neurological diagnoses and is not able to provide specific input It does limit the history of present illness There was no reports of any vomiting or diarrhea Paramedics deny any other reports of trauma at the scene Allergies: Coded Allergies: No Known Allergies (Unverified , 07/03/20) COVID-19 Screening Contact w/high risk pt: No Experienced COVID-19 symptoms?: No COVID-19 Testing performed 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 COVID-19 Screening: Negative COVID-19 COVID-19 Testing Source: 12/12/20 Patient History Limited by: medical condition Past Medical History: see triage record Reviewed Nursing Documentation: PMH: Agreed; PSxH: Agreed Nursing Documentation-PMH Hx Cardiac Problems: No Hx Asthma: Yes Hx COPD: Yes - PNA, COVID + Hx Cancer: No Hx Gastrointestinal Problems: No - constipation Hx Weakness: Yes Review of Systems All Other Systems: limited - Other than the ones mentioned in the history of present illness all others are reviewed however they do stay limited due to the patient's mental status Physical Exam Vital Signs Date Time Temp Pulse Resp B/P (MAP) Pulse Ox O2 Delivery O2 Flow Rate FiO2 12/19/20 12:58 97.5 68 12 98/39 (58) 91 Room Air Sp02 EP Interpretation: reviewed, normal General Appearance: well appearing, no apparent distress Head: normocephalic, atraumatic Eyes: bilateral eye PERRL, bilateral eye EOMI ENT: hearing grossly normal, normal pharynx, TMs + canals normal, uvula midline Neck: full range of motion, supple, no meningismus, no bony tend Respiratory: lungs clear, normal breath sounds, no rhonchi, no respiratory distress, no retraction, no accessory muscle use Cardiovascular #1: normal peripheral pulses, regular rate, rhythm, no edema, no gallop, no JVD, no murmur Gastrointestinal: normal bowel sounds, non tender, soft, no mass, no organomegaly, non-distended, no guarding, no hernia, no pulsatile mass, no rebound Genitourinary: no CVA tenderness Musculoskeletal: normal inspection - No obvious focal deficit Neurologic: sensory intact, responsive Psychiatric: mood/affect normal Skin: no rash Lymphatic: normal inspection, no adenopathy Medical Decision Making Diagnostic Impression: Primary Impression: Encounter for medical screening examination Additional Impression: Dark stools ER Course Given the patient's history and presentation multiple differentials were considered including but not limited to GI hemorrhage, colitis, other infectious or traumatic differentials Patient's history is somewhat limited however There is report from nursing facility Patient had extensive blood work initiated Hemoglobin stays stable since previous recent exam Patient's stool exam reveals brown stool without any evidence of Hemoccult findings Patient remains hemodynamically stable given the findings patient has repeat evaluation at this time is stable for close outpatient follow-up Labs Test 12/19/20 13:13 White Blood Count 6.5 K/UL (4.8-10.8) Red Blood Count 4.31 M/UL (4.70-6.10) Hemoglobin 12.7 G/DL (14.2-18.0) Hematocrit 37.8 % (42.0-52.0) Mean Corpuscular Volume 88 FL (80-99) Mean Corpuscular Hemoglobin 29.3 PG (27.0-31.0) Mean Corpuscular Hemoglobin Concent 33.5 G/DL (32.0-36.0) Red Cell Distribution Width 13.6 % (11.6-14.8) Platelet Count 177 K/UL (150-450) Mean Platelet Volume 5.9 FL (6.5-10.1) Neutrophils (%) (Auto) 75.1 % (45.0-75.0) Lymphocytes (%) (Auto) 19.9 % (20.0-45.0) Monocytes (%) (Auto) 4.2 % (1.0-10.0) Eosinophils (%) (Auto) 0.1 % (0.0-3.0) Basophils (%) (Auto) 0.6 % (0.0-2.0) Prothrombin Time 12.8 SEC (9.30-11.50) Prothromb Time International Ratio 1.2 (0.9-1.1) Activated Partial Thromboplast Time 44 SEC (23-33) Sodium Level 131 MMOL/L (136-145) Potassium Level 3.4 MMOL/L (3.5-5.1) Chloride Level 102 MMOL/L (98-107) Carbon Dioxide Level 30 MMOL/L (21-32) Anion Gap -1 mmol/L (5-15) Blood Urea Nitrogen 25 mg/dL (7-18) Creatinine 0.6 MG/DL (0.55-1.30) Estimat Glomerular Filtration Rate > 60 mL/min (>60) Glucose Level 110 MG/DL (74-106) Lactic Acid Level 1.50 mmol/L (0.4-2.0) Calcium Level 9.2 MG/DL (8.5-10.1) Total Bilirubin 0.6 MG/DL (0.2-1.0) Aspartate Amino Transf (AST/SGOT) 25 U/L (15-37) Alanine Aminotransferase (ALT/SGPT) 58 U/L (12-78) Alkaline Phosphatase 102 U/L (46-116) Total Creatine Kinase 27 U/L (26-308) Creatine Kinase MB 1.2 NG/ML (0.0-3.6) Creatine Kinase MB Relative Index 4.4 Troponin I 0.000 ng/mL (0.000-0.056) Pro-B-Type Natriuretic Peptide 161 pg/mL (0-125) Total Protein 7.1 G/DL (6.4-8.2) Albumin 3.1 G/DL (3.4-5.0) Globulin 4.0 g/dL Albumin/Globulin Ratio 0.8 (1.0-2.7) Lipase 95 U/L (73-393) EKG Diagnostic Results Rate: normal Rhythm: NSR ST Segments: other - Unspecific ST changes Rhythm Strip Diag. Results EP Interpretation: yes Rate: 60 Rhythm: NSR, no PVC's, no ectopy Chest X-Ray Diagnostic Results Chest X-Ray Diagnostic Results : Chest X-Ray Ordered: Yes # of Views/Limited/Complete: 1 View Indication: Chest Pain EP Interpretation: Yes Interpretation: no consolidation, no effusion, no pneumothorax Impression: No acute disease Electronically Signed by: Bárbara Christine DO Last Vital Signs Date Time Temp Pulse Resp B/P (MAP) Pulse Ox O2 Delivery O2 Flow Rate FiO2 12/19/20 13:21 97.5 12 107/48 91 Room Air 12/19/20 12:58 68 Status: improved Disposition: SNF Condition: Improved Referrals: Tereso Dexter MD (PCP) Additional Instructions: Patient stable for return to nursing facility will follow with primary doctor in the next 2-3 days otherwise return to the er with any worsening symptoms. Please note that this report is being documented using DRAGON technology. This can lead to erroneous entry secondary to incorrect interpretation by the dictating instrument. Bárbara Christine DO Dec 19, 2020 14:17
--- NOTE | 2020-12-19 15:08 | NUR ---
pt cleaned and repositioned at this time
[2020-12-19 15:10] LABS: APPEARANCE,URINE CLOUDY; BILIRUBIN, URINE NEGATIVE (NEGATIVE); COLOR,URINE PALE YELLOW; GLUCOSE, URINE (UA) NEGATIVE (NEGATIVE); KETONES,URINE NEGATIVE (NEGATIVE); LEUKOCYTE ESTERASE ,URINE 3+ (NEGATIVE); NITRITE,URINE POSITIVE (NEGATIVE); PH,URINE 9 (4.5-8.0); PROTEIN,URINE 2+ (NEGATIVE); UROBILINOGEN,URINE NORMAL MG/DL (0.0-1.0)
--- NOTE | 2020-12-19 16:17 | NUR ---
report given to flako patient is to be transferd to [facility]
[2020-12-19 16:30] VITALS: BP 110/55
== END 2020-12-19 18:30 ==
LOC: EDBD 12:57 → EMR 13:29
DX: K92.1 Melena (principal); J44.9 Chronic obstructive pulmonary disease, unspecified
CPT/HCPCS: 36415; 71045; 80053; 81003; 82550; 82553; 83605; 83690; 83880; 84484; 85025; 85610; 85730; 86850; 86900; 86901; 87040; 87086; 87181; 93005; Z7502; 99284